=== PATIENT | female | born 1950 | race Caucasian/White ===

== ENCOUNTER 2017-01-12 04:58 | Day surgery (SDC) | payer MEDICARE, OTHER ==
[~2017-01-12] VITALS: Ht 165.1 cm; Wt 74.4 kg
[~2017-01-12 04:58] MED LIST: ASAB PO; AUG875 PO; FISH OIL PO; FLEX PO; LEVOTHYROXIN50 MCG PO; MONODOX100 MG PO; PCET PO; SEPTRA DS1 TAB PO; SYN125 PO
== END 2017-01-12 07:48 | disposition home or self-care (01) ==
LOC: SDC 04:58
PROVIDERS: Orthopaedic Surgery Orthopaedic Surgery of the Spine
PROC: 3E0R33Z Introduction of Anti-inflammatory into Spinal Canal, Percutaneous Approach (ICD-10-PCS; 2017-01-12)
PROC: B01BYZZ Fluoroscopy of Spinal Cord using Other Contrast (ICD-10-PCS; 2017-01-12)
PROC: 3E0R3BZ Introduction of Anesthetic Agent into Spinal Canal, Percutaneous Approach (ICD-10-PCS; principal; 2017-01-12 08:00)
DX: M54.17 Radiculopathy, lumbosacral region (principal); Z90.49 Acquired absence of other specified parts of digestive tract; Z90.89 Acquired absence of other organs; Z98.51 Tubal ligation status; Z98.890 Other specified postprocedural states; Z79.899 Other long term (current) drug therapy
CPT/HCPCS: J2250; J3010; Q9967